=== PATIENT | male | born 1955 | race Caucasian/White ===

== ENCOUNTER 2025-09-16 14:06 | Inpatient (IN) | payer MEDICARE, BC ==
[~2025-09-16] VITALS: Ht 182.9 cm; Wt 98.9 kg
[2025-09-16] MEDS ORDERED: PANTOPRAZOLE 40 MG VIAL ONE (14:44)
[2025-09-16] MEDS ORDERED: ONDANSETRON HCL/PF 4 MG/2 ML VIAL ONE (14:44)
[2025-09-16] MEDS ORDERED: LIDOCAINE VISCOUS 2% UD 15 ML UDC ONE (14:45)
[2025-09-16] MEDS ORDERED: MAG HYDROX/AL HYDROX/SIMETH 30 ML UDC ONE (14:45)
[2025-09-16 14:48] LABS: PLATELET COUNT (AUTO) 221 K/uL (150-450); RED BLOOD CELL COUNT(AUTO) 5.47 MIL/uL (4.5-6.0); RED CELL DISTRIBUTION WIDTH 14.1 % (11.5-15.0); WHITE BLOOD COUNT (AUTO) 14.7 K/uL (4.3-11.0)
[2025-09-16] MEDS: IV LR 1000 ML 1,000 ML IV ONE (14:54)
[2025-09-16] MEDS: ONDANSETRON HCL/PF 4 MG/2 ML VIAL IVP ONE (14:56)
[2025-09-16] MEDS: LIDOCAINE VISCOUS 2% UD 15 ML UDC MM ONE (14:56)
[2025-09-16] MEDS: PANTOPRAZOLE 40 MG VIAL IV ONE (14:56)
[2025-09-16] MEDS: MAG HYDROX/AL HYDROX/SIMETH 30 ML UDC PO ONE (14:56)
[2025-09-16 14:58] LABS: CALCIUM, SERUM 9.7 mg/dL (8.5-10.1); CREATININE 1.0 mg/dL (0.6-1.3); SODIUM SERUM 136.0 mmol/L (136-145); UREA NITROGEN, BLOOD 23.0 mg/dL (7-18)
[2025-09-16 15:04] LABS: ASPARTATE AMINOTRANSFERASE 22.0 U/L (15-37); TOTAL PROTEIN, SERUM 7.7 g/dL (6.4-8.2)
[2025-09-16] MEDS ORDERED: IOHEXOL-300 100 ML VIAL IV ONE (15:10)
[2025-09-16] MEDS ORDERED: IV NS 0.9% 250 ML IV ONE (15:10)
[2025-09-16 16:38] LABS: PHOSPHORUS 3.5 mg/dL (2.5-4.9)
[2025-09-16] MEDS ORDERED: CARV12.52 PO (16:47)
[2025-09-16] MEDS ORDERED: ASPI-1420 PO (16:47)
[2025-09-16] MEDS ORDERED: PANT40TA49 PO (16:47)
[2025-09-16] MEDS ORDERED: TADA5TAB13 PO (16:47)
[2025-09-16] MEDS ORDERED: CLOP75TA15 PO (16:47)
[2025-09-16] MEDS ORDERED: ATOR80TA PO (16:47)
[2025-09-16] MEDS ORDERED: VALS80TA31 PO (16:47)
[2025-09-16 18:25] LABS: APPEARANCE,URINE CLEAR (CLEAR); BLOOD, URINE 1+ Ery/uL (NEGATIVE); LEUKOCYTE ESTERASE ,URINE NEGATIVE (NEGATIVE); NITRITE, URINE NEGATIVE (NEGATIVE); UGLUCOSE NEGATIVE (NEGATIVE)
[2025-09-16 18:53] LABS: ADD URINE CULTURE NO; SQUAMOUS EPITHELIAL CELL,UR None Seen /HPF (None Seen)
[2025-09-16 20:00] VITALS: BP 160/79; TEMP 97.8; O2SAT 98
[2025-09-16] MEDS ORDERED: ONDANSETRON HCL/PF 4 MG/2 ML VIAL IVP PRN (20:00)
[2025-09-16] MEDS ORDERED: DOSING PER PHARMACY-ZOSYN IV 1 EA EA XX PRN (20:00)
[2025-09-16] MEDS ORDERED: ACETAMINOPHEN 325 MG TABLET PO PRN (20:00)
[2025-09-16] MEDS ORDERED: MORPHINE SULFATE INJ 2 MG/ML DISP.SYRIN IV PRN (20:00)
[2025-09-16] MEDS: ENOXAPARIN SODIUM 40 MG/0.4 ML DISP.SYRIN SQ SCH (20:00)
[2025-09-16] MEDS: PANTOPRAZOLE 40 MG VIAL IV SCH (20:16)
[2025-09-16] MEDS: IV NS 0.9% 1,000 ML IV PRN (20:16)
[2025-09-16] MEDS: POTASSIUM CHLORIDE 20 MEQ TAB.PRT.SR PO ONE (21:20)
[2025-09-16] MEDS: VALSARTAN 80 MG TABLET PO SCH (21:20)
[2025-09-16] MEDS: ASPIRIN EC 81 MG TABLET.DR PO SCH (21:20)
[2025-09-16] MEDS: CARVEDILOL 12.5 MG TABLET PO SCH (21:20)
[2025-09-16] MEDS: ATORVASTATIN 40 MG TABLET PO SCH (21:21)
[2025-09-16] MEDS ORDERED: PANTOPRAZOLE 40 MG TABLET.DR PO SCH (22:00)
[2025-09-17] MEDS: ZOSYN IVPB 3.375 G in IV D5W 50ml IV SCH
[2025-09-17 07:46] LABS: PLATELET COUNT (AUTO) 175 K/uL (150-450); RED BLOOD CELL COUNT(AUTO) 4.55 MIL/uL (4.5-6.0); RED CELL DISTRIBUTION WIDTH 13.9 % (11.5-15.0); WHITE BLOOD COUNT (AUTO) 9.5 K/uL (4.3-11.0)
[2025-09-17 08:00] VITALS: BP 162/81; TEMP 97.7; O2SAT 96
[2025-09-17 08:16] LABS: CALCIUM, SERUM 8.8 mg/dL (8.5-10.1); CREATININE 1.0 mg/dL (0.6-1.3); PHOSPHORUS 2.7 mg/dL (2.5-4.9); SODIUM SERUM 141.0 mmol/L (136-145); UREA NITROGEN, BLOOD 18.0 mg/dL (7-18)
[2025-09-17 08:30] VITALS: BP 162/81
[2025-09-17] MEDS: CLOPIDOGREL BISULFATE 75 MG TABLET PO SCH (08:30)
[2025-09-17] MEDS ORDERED: Medication Not On Formulary EA (Tadalafil 5 MG) PO SCH (09:00)
[2025-09-18] MEDS ORDERED: PANTOPRAZOLE 40 MG/PACK PACK PO SCH (09:00)
== END 2025-09-17 09:55 | disposition home or self-care (01) | DRG 388 ==
LOC: ER 14:16 → MED 17:57
PROVIDERS: ADMIT Nurse Practitioner Acute Care; ATTEND Nurse Practitioner Acute Care
DX: K56.609 Unspecified intestinal obstruction, unspecified as to partial versus complete obstruction (principal); J15.9 Unspecified bacterial pneumonia; J69.0 Pneumonitis due to inhalation of food and vomit; Z79.02 Long term (current) use of antithrombotics/antiplatelets; I10 Essential (primary) hypertension; E66.01 Morbid (severe) obesity due to excess calories; D68.59 Other primary thrombophilia; K56.7 Ileus, unspecified; Z95.1 Presence of aortocoronary bypass graft; I25.10 Atherosclerotic heart disease of native coronary artery without angina pectoris; E78.5 Hyperlipidemia, unspecified; K21.9 Gastro-esophageal reflux disease without esophagitis; Z88.0 Allergy status to penicillin; Z79.82 Long term (current) use of aspirin; Z79.899 Other long term (current) drug therapy; R91.8 Other nonspecific abnormal finding of lung field; Z68.29 Body mass index [BMI] 29.0-29.9, adult; K44.9 Diaphragmatic hernia without obstruction or gangrene; E87.5 Hyperkalemia
CPT/HCPCS: 36415; 71045-TC; 76705-TC; 80048-TC; 80076-TC; 81001; 83690-TC; 83735-TC; 84100-TC; 84484-TC; 85025-TC; A4223; G0378; J1650; J2405; J2470; J2543; J7030; J7050; J7060; J7120; Q9967